=== PATIENT | female | born 1965 | race Caucasian/White ===

== ENCOUNTER 2019-01-10 23:00 | Emergency (ER) | payer SELFPAY ==
[~2019-01-10] VITALS: Ht 165.1 cm; Wt 66.0 kg
[~2019-01-10 23:00] MED LIST: CEPH-443 PO; HYDR-4011 PO; SULF1TAB31 PO
[2019-01-10 23:05] VITALS: Ht 165.1 cm; Wt 66.0 kg
[2019-01-11] MEDS ORDERED: IBUPROFEN 600 MG TAB PO ONE (01:00)
[2019-01-11] MEDS ORDERED: CEFTRIAXONE 1 GM INJ IM ONE (01:00)
[2019-01-11] MEDS ORDERED: BACITRACIN 0.9 GM OINT TOP ONE (01:00)
[2019-01-11] MEDS ORDERED: HYDROCODONE/APAP (10/325) TAB PO ONE (01:00)
[2019-01-11] MEDS ORDERED: LIDOCAINE 1% (MPF) 5 ML VIAL INJ ONE (01:00)
--- NOTE | 2019-01-14 18:46 | ERD ---
ER Documentation Chief Complaint Chief Complaint PT REPORTS L SHOULDER ABSCESS HPI 53-year-old female presents complaint of left shoulder abscess for the past 3 days. States that her boyfriend drained it earlier today. Patient states that is painful. Pain is any worse palpation. Pain is nonradiating. Patient denies any numbness, tingling, fevers, chills. ROS All systems reviewed and are negative except as per history of present illness. Medications Home Meds Active Scripts Hydrocodone/Acetaminophen ([place] 5-325 Tablet) 1 Each Tablet, 1-2 TAB PO Q6H PRN for PAIN, #15 TAB Prov:MATTHEW ELAINE 01/11/19 Cephalexin* (Keflex*) 500 Mg Capsule, 500 MG PO QID for 7 Days, CAP Prov:ALMA DELIAMATTHEW BRISCOE 01/11/19 Sulfamethoxazole/Trimethoprim* (Bactrim Ds* Tablet) 1 Each Tablet, 1 TAB PO BID, #14 TAB Prov:GREGORY ELAINEEL 01/11/19 Allergies Allergies: Coded Allergies: hydromorphone (Verified Allergy, Unknown, 01/10/19) PMhx/Soc Medical and Surgical Hx: pt denies Medical Hx, pt denies Surgical Hx Hx Alcohol Use: No Hx Substance Use: No Hx Tobacco Use: No Smoking Status: Never smoker FmHx Family History: No diabetes, No coronary disease, No other Physical Exam Vitals Vital Signs Date Temp Pulse Resp B/P (MAP) Pulse Ox O2 O2 Flow FiO2 Time Delivery Rate 01/10/19 99.1 101 20 131/73 98 23:05 (92) Physical Exam Const: No acute distress Head: Atraumatic Eyes: Normal Conjunctiva ENT: Normal External Ears, Nose and Mouth. Neck: Full range of motion. No meningismus. Resp: Clear to auscultation bilaterally Cardio: Regular rate and rhythm, no murmurs Abd: Soft, non tender, non distended. Normal bowel sounds Skin: Approximately 2 cm mass noted to the left shoulder with central drainage. Nonfluctuant. Not indurated. Tender to palpation. No lymphatic streaking noted. Back: No midline or flank tenderness Ext: No cyanosis, or edema Neur: Awake and alert Psych: Normal Mood and Affect Results 24 hrs Current Medications Medications Dose Sig/Jimmy Start Time Status Last (Trade) Ordered Route PRN Stop Time Admin Dose Reason Admin Ibuprofen 600 mg ONCE ONCE 8/8/19 DC 01/11/19 (Motrin) PO 01:00 01/11/19 00:53 01:01 1 tab ONCE ONCE 01/11/19 DC 01/11/19 Acetaminophen PO 01:00 01/11/19 00:53 / 01:01 Hydrocodone Bitart ([place] (10/325)) Bacitracin 1 applic ONCE ONCE 01/11/19 DC 01/11/19 (Bacitracin TOP 01:00 01/11/19 00:56 Oint (Ud)) 01:01 Ceftriaxone 1 gm ONCE ONCE 01/11/19 DC 01/11/19 Sodium IM 01:00 01/11/19 00:53 (Rocephin) 01:01 Lidocaine 5 ml ONCE ONCE 01/11/19 DC 01/11/19 (Xylocaine INJ 01:00 01/11/19 00:53 1% (Mpf)) 01:01 Procedures/MDM MDM: Patient's presentation is consistent with abscess that is already drained on its own. Patient will be treated with Bactrim and Keflex. Drained abscess was cleansed and dressed in the ER and bacitracin was applied. Patient was given a dose of ceftriaxone since she will not be able to get in to pharmacy until the morning. Low suspicion for Kawasaki disease, scarlet fever, necrotizing fasciitis, sepsis, gangrene, Marvel-Gallo syndrome, toxic epidural necrolysis, anaphylaxis, allergic reaction. At this time, patient is stable for discharge and outpatient management. I have instructed the patient to follow-up with his/her primary care physician in 1 day. I have discussed with the patient the possibility of needing to see a specialist for further workup and imaging studies if symptoms persist. I have instructed the patient to promptly return to the ER for any new or worsening symptoms including but not limited to increased pain, fever, nausea, vomiting, weakness or LOC. The patient and/or family expressed understanding of and agreement with this plan. All questions were answered. Home care instructions were provided. DISCLAIMER: Inadvertent spelling and grammatical errors are likely due to EHR/dictation software use and do not reflect on the overall quality of patient care. Also, please note that the electronic time recorded on this note does not necessarily reflect the actual time of the patient encounter. Departure Diagnosis: Primary Impression: Abscess Condition: Stable Patient Instructions: Abscess, Antiobiotic Treatment Only Referrals: [facility] YOU HAVE RECEIVED A MEDICAL SCREENING EXAM AND THE RESULTS INDICATE THAT YOU DO NOT HAVE A CONDITION THAT REQUIRES URGENT TREATMENT IN THE EMERGENCY DEPARTMENT. FURTHER EVALUATION AND TREATMENT OF YOUR CONDITION CAN WAIT UNTIL YOU ARE SEEN IN YOUR DOCTORS OFFICE WITHIN THE NEXT 1-2 DAYS. IT IS YOUR RESPONSIBILITY TO MAKE AN APPOINTMENT FOR FOLOW-UP CARE. IF YOU HAVE A PRIMARY DOCTOR --you should call your primary doctor and schedule an appointment IF YOU DO NOT HAVE A PRIMARY DOCTOR YOU CAN CALL OUR PHYSICIAN REFERRAL HOTLINE AT IF YOU CAN NOT AFFORD TO SEE A PHYSICIAN YOU CAN CHOSE FROM THE FOLLOWING [facility] [address] [facility]. [facility] [address] [facility]. [facility] [address] [facility] [facility] [address] [facility]. [facility] [address] [facility]. [facility] [address] Additional Instructions: FOLLOW UP WITH YOUR PRIMARY CARE PHYSICIAN TOMORROW.Return to this facility if you are not improving as expected. MATTHEW ELAINE Jan 14, 2019 18:46
== END 2019-01-11 01:09 | disposition home or self-care (01) ==
LOC: FTE 23:00
DX: L02.414 Cutaneous abscess of left upper limb (principal)
CPT/HCPCS: 96372; 99284; J0696